=== PATIENT | female | born 1955 | race Caucasian/White ===

== ENCOUNTER → 2017-07-01 | Outpatient (CLI) | payer BC ==
[~2017-07-01] MED LIST: ISOVUE-370 76% 100ML VIAL (Q9967) As Ordered
== END ==
LOC: M RAD 16:09
DX: R31.29 Other microscopic hematuria (principal); N20.0 Calculus of kidney; K80.20 Calculus of gallbladder without cholecystitis without obstruction; N28.1 Cyst of kidney, acquired; K57.90 Diverticulosis of intestine, part unspecified, without perforation or abscess without bleeding

== ENCOUNTER → 2018-03-17 | Outpatient (CLI) | payer BC ==
--- NOTE | 2018-03-18 04:21 | REP ---
Clinical: Cholelithiasis. Technique: Malave scale ultrasound using curved array transducer. Findings: The liver demonstrates increased echogenicity suggesting fatty infiltration and 1.3 cm simple hepatic cyst in the right lobe. Pancreas is unremarkable. Gallbladder demonstrates multiple gallstones up to 3.3 cm without wall thickening or pericholecystic fluid. No biliary ductal dilatation is appreciated and the common bile duct measures 5.1 mm diameter. The right kidney is normal in reniform shape without hydronephrosis and measures 9.8 x 5.3 x 4.5 cm. No ascites. Visualized portions of the abdominal aorta normal. Impression: 1. Fatty infiltration to the liver and 1.3 cm hepatic cyst. 2. Cholelithiasis. Electronically Signed by González Tavarez MD 03/18/2018 04:12 A
== END ==
LOC: M RAD 07:47
PROVIDERS: ATTEND Family Medicine
DX: K80.70 Calculus of gallbladder and bile duct without cholecystitis without obstruction (principal)

== ENCOUNTER → 2019-11-17 | Outpatient (CLI) | payer BC, MEDICARE ==
[~2019-11-17] MED LIST changes: +ISOVUE-300 61% 50ML VIAL As Ordered ONE; -ISOVUE-370 76% 100ML VIAL (Q9967) As Ordered; +ISOVUE-370 76% 100ML VIAL As Ordered ONE; +LIDOCAINE 1% MDV 20ML VIAL As Ordered ONE; +TRIAMCINOLONE ACETONIDE SUSP 40 MG/ML VIAL (J3301) As Ordered ONE
--- NOTE | 2019-12-08 08:58 | REP ---
LEFT SHOULDER INJECTION The procedure was performed under the direct supervision of Dr. Malave. The benefits and risks including, but not limited to pain, infection, bleeding, and anaphylaxis were explained to the patient and informed consent was obtained. The left glenohumeral joint space was localized using fluoroscopic guidance. The skin was prepped and draped in a sterile fashion. 1% Lidocaine was used as a local anesthetic. Using fluoroscopic guidance, a 22-gauge spinal needle was inserted and advanced into the joint. 0.5 mL of Isovue-300 was injected to verify placement. 6 mL of a solution containing 5 mL of 1% Lidocaine and 1 mL of Kenalog 40 mg was injected. The needle was then removed. The patient tolerated the procedure well and there were no immediate complications. Less than 6 seconds of fluoroscopy time was utilized for this procedure. SAUL
== END ==
LOC: M RADPRO 13:44
PROVIDERS: ATTEND Orthopaedic Surgery Sports Medicine
DX: M19.012 Primary osteoarthritis, left shoulder (principal)
CPT/HCPCS: 20610; 77002; J3301; Q9967

== ENCOUNTER → 2020-06-03 | Outpatient (REF) | payer MEDICARE | LOC: M LAB REF 14:51 | PROVIDERS: ATTEND Physician Assistant | DX: R11.0 Nausea (principal); N39.0 Urinary tract infection, site not specified ==

== ENCOUNTER 2020-08-30 16:31 | Emergency (ER) | payer MEDICARE ==
[~2020-08-30] VITALS: Ht 167.6 cm; Wt 100.0 kg
[2020-08-30] MEDS ORDERED: ONDA4TAB6 (16:39)
[2020-08-30] MEDS ORDERED: ATEN25TA (16:39)
[2020-08-30] MEDS ORDERED: CEPH500C (16:39)
[2020-08-30] MEDS ORDERED: DOXY100T27 (16:39)
[2020-08-30] MEDS ORDERED: DULO1CAP6 (16:39)
[2020-08-30] MEDS ORDERED: ROSU10TA6 (16:39)
[2020-08-30] MEDS ORDERED: LOSA100T50 (16:39)
[2020-08-30] MEDS ORDERED: NS 1,000 ML IV ONE (18:30)
[2020-08-30] MEDS ORDERED: ONDANSETRON 4MG/2ML VIAL IV ONE (18:30)
[2020-08-30 19:21] LABS: VENOUS BASE EXCESS 1.8 (-2.0-2.0); VENOUS O2 SATURATION 52.9 % (60.0-80.0); VENOUS PARTIAL PRESSURE O2 27.2 mmHg (30.0-50.0); VENOUS PH 7.366 UNITS (7.330-7.430); VENOUS TOTAL CO2 29.5 MEQ/L (24.0-28.0)
[2020-08-30 19:25] LABS: BASO % 0.4 % (0.0-1.0); EOS % 0.1 % (0.0-3.0); HEMATOCRIT 39.3 % (36.0-47.0); HEMOGLOBIN 12.7 g/dl (12.0-15.5); LYMPH # 0.7 10^3/uL (1.5-5.0); LYMPH % 8.7 % (24.0-44.0); MEAN CORPUSCULAR HEMOGLOBIN 28.5 pg (27.0-33.0); MEAN CORPUSCULAR HGB CONC 32.3 g/dl (32.0-36.5); MEAN CORPUSCULAR VOLUME 88.3 fl (80.0-96.0); MONO # 0.5 10^3/uL (0.0-0.8); NEUTROPHILS # 6.2 10^3/uL (1.5-8.5); NEUTROPHILS % 83.3 % (36.0-66.0); PLATELET COUNT, AUTOMATED 153 10^3/uL (150-450); RED BLOOD COUNT 4.45 10^6/uL (4.00-5.40); WHITE BLOOD COUNT 7.4 10^3/uL (4.0-10.0)
[2020-08-30 19:43] LABS: ERYTHROCYTE SEDIMENTATION RATE 70 mm/hr (0-30)
[2020-08-30 19:57] LABS: ALBUMIN 2.8 GM/DL (3.2-5.2); ALT/SGPT 29 U/L (12-78); BILIRUBIN,DIRECT 0.3 MG/DL (0.0-0.2); BILIRUBIN,TOTAL 0.7 MG/DL (0.2-1.0); CK-MB VALUE MASS < 1.0 NG/ML (<3.6); CPK CREATINE PHOSPHOKINASE 34 U/L (26-192); FREE THYROXINE INDEX 2.4 % (1.3-4.8); LIPASE 66 U/L (73-393); MB/CK RELATIVE INDEX 2.94 (< OR =4); T UPTAKE 30 % (30-39); THYROXINE (T4) 7.9 UG/DL (4.5-12.0); TOTAL PROTEIN 6.5 GM/DL (6.4-8.2); TROPONIN I < 0.02 NG/ML (< 0.10)
[2020-08-30] MEDS ORDERED: ISOVUE-370 76% 100ML VIAL As Ordered ONE (20:44)
--- NOTE | 2020-08-30 21:40 | REPVR ---
PROCEDURE INFORMATION: Exam: CTA Chest With Contrast Exam date and time: 08/30/2020 9:21 PM Age: 64 years old Clinical indication: Shortness of breath and other: Elevated ddimer; Additional info: Epigastric to back pain, SOB, elev d dimer TECHNIQUE: Imaging protocol: Computed tomographic angiography of the chest with contrast. 3D rendering (Not supervised by radiologist): MIP and/or 3D reconstructed images were created by the technologist. Radiation optimization: All CT scans at this facility use at least one of these dose optimization techniques: automated exposure control; mA and/or kV adjustment per patient size (includes targeted exams where dose is matched to clinical indication); or iterative reconstruction. Contrast material: ISOVUE 370; Contrast volume: 100 ml; Contrast route: INTRAVENOUS (IV); COMPARISON: 1. IN CHEST 2 VIEW 08/30/2020 10:[address] ABD PELVIS W/O FOL BY WIT 07/01/2017 4:33 PM FINDINGS: Pulmonary arteries: There are no pulmonary emboli. Aorta: There is no aortic dissection or aneurysm. Lungs: Parenchymal scarring right middle and right lower lobes. Peripheral noncalcified pulmonary parenchymal nodules measuring up to 5 mm in the left lower lobe. Findings likely postinflammatory. Lungs otherwise clear. Pleural spaces: Unremarkable. No pneumothorax. No pleural effusion. Heart: There is mild cardiomegaly. Lymph nodes: Unremarkable. No enlarged lymph nodes. Liver: 9 mm simple cyst right lobe of the liver. Gallbladder and bile ducts: There are gallstones present. No evidence of cholecystitis demonstrated. Spleen: Borderline splenomegaly. Kidneys and ureters: Nonobstructive renal calculus on the right. Right-sided hydronephrosis not evaluated on this examination dedicated to the thorax. Also noted is patchy parenchymal opacification and enlargement of the right kidney, findings which may indicate the presence of multifocal pyelonephritis. Bones/joints: The spine demonstrates mild degenerative changes. Soft tissues: Unremarkable. IMPRESSION: 1. Peripheral noncalcified pulmonary parenchymal nodules measuring up to 5 mm in the left lower lobe. Findings likely postinflammatory. For patients at low risk (minimal or absent history of smoking and of other known risk factors), no routine follow-up is indicated. For patients at high risk (history of smoking or of other known risk factors), consider optional CT Chest at 12 months. (Reference: Adam) References: Adam Turner et al. Guidelines for Management of Incidental Pulmonary Nodules Detected on CT Images: From the Fleischner Society 2017. Radiology. 2017;284(1):228-243. 2. There is no aortic dissection or aneurysm. 3. There are no pulmonary emboli. 4. There is mild cardiomegaly. 5. Nonobstructive renal calculus on the right. Right-sided hydronephrosis not evaluated on this examination dedicated to the thorax. Also noted is patchy parenchymal opacification and enlargement of the right kidney, findings which may indicate the presence of multifocal pyelonephritis. 6. There are gallstones present. No evidence of cholecystitis demonstrated. COMMENTS: Consistent with the [employer]'s Incidental Findings Committee white paper (J Am Sharifa Radiol 2018): Any incidental renal lesion less than 1 cm or classified as too small to characterize, or any incidental cystic renal lesion characterized as simple-appearing, is likely benign. No follow-up imaging is recommended for these lesions per consensus recommendations based on imaging criteria. Electronically signed by: Dat Pineda On 08/30/2020 21:39:27 PM
--- NOTE | 2020-08-30 21:47 | REPVR ---
PROCEDURE INFORMATION: Exam: CT Abdomen And Pelvis With Contrast Exam date and time: 08/30/2020 9:21 PM Age: 64 years old Clinical indication: Abdominal pain; Epigastric; Additional info: Epigastric to back pain, SOB, elev d dimer TECHNIQUE: Imaging protocol: Computed tomography of the abdomen and pelvis with contrast. Radiation optimization: All CT scans at this facility use at least one of these dose optimization techniques: automated exposure control; mA and/or kV adjustment per patient size (includes targeted exams where dose is matched to clinical indication); or iterative reconstruction. Contrast material: ISOVUE 370; Contrast volume: 100 ml; Contrast route: INTRAVENOUS (IV); COMPARISON: 1. CT ABD PELVIS W/O FOL BY WIT 07/01/2017 4:33 PM 2. WA ABDOMEN MIN 2 VIEW 08/30/2020 10:24 AM FINDINGS: Liver: There are multiple hepatic cysts measuring up to 1.1 cm in the right lobe of the liver. There is a 9 mm hypodensity in the lateral aspect of the hepatic dome not fully evaluated on this single phase examination. Lesion does not represent a simple cyst. Further evaluation as clinically directed suggested. Gallbladder and bile ducts: There are gallstones present. There is mild thickening of the gallbladder wall which may be secondary to chronic cholecystitis. No pericholecystic fluid. Clinical correlation to exclude acute cholecystitis suggested. Pancreas: Normal. No ductal dilation. Spleen: Normal. No splenomegaly. Adrenal glands: Normal. No mass. Kidneys and ureters: Simple left renal cyst measures 1.5 cm. Bilateral nonobstructive intrarenal calculi. There are two obstructive ureteral calculi located proximal right ureter measuring up to 7 mm mild resulting in moderate proximal hydroureteronephrosis. There is moderate periureteral and perinephric stranding. No urinoma demonstrated. There is patchy opacification of the right kidney particularly in the upper, lateral interpolar and lower pole, findings compatible with pyelonephritis. Stomach and bowel: Unremarkable. No obstruction. No mucosal thickening. Appendix: No evidence of appendicitis. Intraperitoneal space: Unremarkable. No free air. No significant fluid collection. Vasculature: Unremarkable. No abdominal aortic aneurysm. Lymph nodes: Unremarkable. No enlarged lymph nodes. Urinary bladder: Unremarkable as visualized. Reproductive: There has been a hysterectomy. Bones/joints: Moderate central spinal stenosis L3-L4 and L4-L5. Bulging annulus L5-S1. Soft tissues: Unremarkable. IMPRESSION: 1. There has been a hysterectomy. 2. There are multiple hepatic cysts. There is a 9 mm hypodensity in the lateral aspect of the hepatic dome not fully evaluated on this single phase examination. Lesion does not represent a simple cyst. Further evaluation as clinically directed suggested. 3. There are gallstones present. There is mild thickening of the gallbladder wall which may be secondary to chronic cholecystitis. No pericholecystic fluid. Clinical correlation to exclude acute cholecystitis suggested. 4. Bilateral nonobstructive intrarenal calculi. 5. There are 2 obstructive proximal right ureteral calculi as described above. 6. There is patchy opacification of the right kidney compatible with pyelonephritis. COMMENTS: Consistent with the [employer]'s Incidental Findings Committee white paper (J Am Sharifa Radiol 2018): Any incidental renal lesion less than 1 cm or classified as too small to characterize, or any incidental cystic renal lesion characterized as simple-appearing, is likely benign. No follow-up imaging is recommended for these lesions per consensus recommendations based on imaging criteria. Electronically signed by: Dat Pineda On 08/30/2020 21:46:56 PM
[2020-08-30] MEDS ORDERED: TAMSULOSIN 0.4 MG CAP PO ONE (23:00)
[2020-08-30] MEDS ORDERED: CEPHALEXIN 500 MG CAP PO ONE (23:00)
[2020-08-30] MEDS ORDERED: FLOM0.4C39 PO (23:02)
[2020-08-30] MEDS ORDERED: CEPH500C PO (23:02)
[2020-08-30 23:09] VITALS: BP 150/94
[2020-08-30] MEDS ORDERED: ACETAMINOPHEN 500 MG TAB PO ONE (23:20)
--- NOTE | 2020-09-01 05:59 | ECGEPIP ---
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
--- NOTE | 2020-09-02 13:58 | ED PDOC ---
Post-Departure Follow-Up radiology report faxed to Gabby Maldonado MD Sep 02, 2020 13:58
== END 2020-08-30 23:30 | disposition home or self-care (01) ==
LOC: M ED 16:31
DX: N10 Acute pyelonephritis (principal); N13.2 Hydronephrosis with renal and ureteral calculous obstruction; R11.0 Nausea; R00.0 Tachycardia, unspecified; I10 Essential (primary) hypertension; E78.5 Hyperlipidemia, unspecified; K80.20 Calculus of gallbladder without cholecystitis without obstruction; R91.8 Other nonspecific abnormal finding of lung field; R50.9 Fever, unspecified; R30.0 Dysuria; R10.84 Generalized abdominal pain; K76.89 Other specified diseases of liver; Z88.0 Allergy status to penicillin
CPT/HCPCS: 36415; 71046; 71275; 74019; 74177; 80047; 80053; 80076; 81001; 82550; 82553; 82803; 83605; 83690; 84436; 84443; 84479; 84484; 85025; 85379; 85652; 86140; 87086; 93005; 96361; 96374; 99284; J2405; Q9967

== ENCOUNTER → 2020-08-30 | Outpatient (CLI) | payer MEDICARE ==
[~2020-08-30] MED LIST changes: +ATEN25TA; +CEPH500C; +CEPH500C PO; +DOXY100T27; +DULO1CAP6; +FLOM0.4C39 PO; -ISOVUE-300 61% 50ML VIAL As Ordered ONE; -ISOVUE-370 76% 100ML VIAL As Ordered ONE; -LIDOCAINE 1% MDV 20ML VIAL As Ordered ONE; +LOSA100T50; +ONDA4TAB6; +ROSU10TA6; -TRIAMCINOLONE ACETONIDE SUSP 40 MG/ML VIAL (J3301) As Ordered ONE
--- NOTE | 2020-08-30 10:53 | REP ---
INDICATION: SHORTNESS OF BREATH, FEVER. COMPARISON: None. FINDINGS: The superior mediastinal structures are midline. The cardiac silhouette is unremarkable in size, shape, and position. The diaphragmatic surfaces of the lungs are regular, and the costophrenic angles are clear. There is a subtle asymmetric density seen in the right lower lobe within or abutting the right minor fissure. The lung laureano are otherwise clear.. The imaged osseous structures are intact. IMPRESSION: Likely a small patch of subsegmental atelectatic change or fibrotic change seen in the right lung as described above, however, since are no priors comparison a 1 month follow-up is recommended or sooner if clinically relevant. Certainly, small patch of developing pneumonia could not be ruled out at this time. <Electronically signed by Alfredo Bethea > 08/30/20 [id number]
--- NOTE | 2020-08-30 10:54 | REP ---
INDICATION: FEVER, DYSURIA, GENERALIZED ABDOMINAL PAIN. COMPARISON: None. TECHNIQUE: Supine and upright views of the abdomen FINDINGS: Two loops of gas-filled mildly dilated small bowel loops are seen in the left upper quadrant. Gas and stool seen throughout the colon and within the rectosigmoid region. There is a moderate amount of colonic content. There is no evidence of free air. The osseous structures are within normal limits. The organ silhouettes insofar as delineated are unremarkable. IMPRESSION: Probable small bowel ileus. Follow-up is suggested. <Electronically signed by Alfredo Bethea > 08/30/20 [id number]
[2020-08-30 11:39] LABS: BASO % 0.4 % (0.0-1.0); EOS % 0.3 % (0.0-3.0); HEMOGLOBIN 13.6 g/dl (12.0-15.5); LYMPH # 0.6 10^3/uL (1.5-5.0); LYMPH % 6.3 % (24.0-44.0); MEAN CORPUSCULAR HEMOGLOBIN 28.6 pg (27.0-33.0); MEAN CORPUSCULAR HGB CONC 32.4 g/dl (32.0-36.5); MEAN CORPUSCULAR VOLUME 88.4 fl (80.0-96.0); MONO # 0.5 10^3/uL (0.0-0.8); MONO % 5.2 % (2.0-8.0); NEUTROPHILS # 8.8 10^3/uL (1.5-8.5); NEUTROPHILS % 86.7 % (36.0-66.0); PLATELET COUNT, AUTOMATED 162 10^3/uL (150-450); RED BLOOD COUNT 4.75 10^6/uL (4.00-5.40); WHITE BLOOD COUNT 10.1 10^3/uL (4.0-10.0)
[2020-08-30 12:08] LABS: ALBUMIN 3.1 GM/DL (3.2-5.2); BILIRUBIN,TOTAL 0.9 MG/DL (0.2-1.0); CALCIUM LEVEL 8.9 MG/DL (8.8-10.2); CREATININE FOR GFR 1.12 MG/DL (0.55-1.30); POTASSIUM SERUM 3.5 MEQ/L (3.5-5.1); TOTAL PROTEIN 6.9 GM/DL (6.4-8.2)
== END ==
LOC: M WUC 10:10
PROVIDERS: ATTEND Nurse Practitioner Family
DX: R50.9 Fever, unspecified (principal); R30.0 Dysuria; R10.84 Generalized abdominal pain; R91.8 Other nonspecific abnormal finding of lung field

== ENCOUNTER → 2020-09-23 | Outpatient (CLI) | payer MEDICARE ==
[~2020-09-23] MED LIST changes: -ATEN25TA; +ATEN25TA PO; -DULO1CAP6; +DULO1CAP6 PO; -LOSA100T50; +LOSA100T50 PO; -ROSU10TA6; +ROSU10TA6 PO
[2020-09-23 17:47] LABS: HEMATOCRIT 38.3 % (36.0-47.0); HEMOGLOBIN 11.9 g/dl (12.0-15.5); MEAN CORPUSCULAR HGB CONC 31.1 g/dl (32.0-36.5); MEAN CORPUSCULAR VOLUME 90.1 fl (80.0-96.0); PLATELET COUNT, AUTOMATED 194 10^3/uL (150-450); RED BLOOD COUNT 4.25 10^6/uL (4.00-5.40); WHITE BLOOD COUNT 4.7 10^3/uL (4.0-10.0)
[2020-09-23 18:15] LABS: ALBUMIN 3.1 GM/DL (3.2-5.2); BILIRUBIN,TOTAL 0.4 MG/DL (0.2-1.0); CALCIUM LEVEL 9.2 MG/DL (8.8-10.2); CREATININE FOR GFR 1.1 MG/DL (0.55-1.30); GLOMERULAR FILTRATION RATE 53.1 (>45); TOTAL PROTEIN 6.9 GM/DL (6.4-8.2)
== END ==
LOC: M WUC 12:02
PROVIDERS: ATTEND Urology
DX: N20.1 Calculus of ureter (principal)

== ENCOUNTER → 2020-09-28 | Outpatient (CLI) | payer MEDICARE | LOC: M LABSMTC 12:41 | PROVIDERS: ATTEND Anesthesiology | DX: Z01.812 Encounter for preprocedural laboratory examination (principal); Z20.822 Contact with and (suspected) exposure to COVID-19 ==

== ENCOUNTER 2020-10-03 11:07 | Day surgery (SDC) | payer MEDICARE ==
[~2020-10-03] VITALS: Ht 165.1 cm; Wt 97.0 kg
[~2020-10-03 11:07] MED LIST changes: +CIPROFLOXACIN 400 MG in IV 1 EA IV ONE; +LIDOCAINE 1% MDV 20ML VIAL SQ PRN; +LIDOCAINE 2% 100MG/5ML SDV (FOR ANES.) As Ordered ONE; +LR 1,000 ML IV ONE; +MIDAZOLAM INJ 2MG/2ML VIAL (J2250 PER 1MG) As Ordered ONE; +fentaNYL 100 MCG/2 ML INJECTION (J3010) As Ordered ONE; +propofoL 200 MG/20 ML VIAL As Ordered ONE
[2020-10-03] MEDS ORDERED: CONRAY-60 60% 50ML VIAL (Q9961) As Ordered ONE (12:12)
[2020-10-03] MEDS ORDERED: ePHEDrine SULFATE 25 MG/5 ML(5MG/ML) SYRINGE As Ordered ONE (12:41)
[2020-10-03] MEDS ORDERED: dexameTHASONE 4 MG/ML 1ML VIAL (J1100 PER 1MG) As Ordered ONE (12:42)
[2020-10-03] MEDS ORDERED: ONDANSETRON 4MG/2ML VIAL As Ordered ONE (12:42)
[2020-10-03] MEDS ORDERED: PHENYLephrine 500MCG 5ML (100MCG/ML) SYRINGE As Ordered ONE ×2 (12:45→13:03)
[2020-10-03] MEDS ORDERED: ACETAMINOPHEN 1000MG 100ML IV BTL (OFIRMEV) (J0131 PER 10MG) As Ordered ONE (12:50)
[2020-10-03] MEDS ORDERED: CIPR500T39 PO (13:25)
[2020-10-03] MEDS ORDERED: OXYB5TAB10 PO (13:25)
[2020-10-03] MEDS ORDERED: AZO-95TA3 PO (13:25)
--- NOTE | 2020-10-03 13:32 | REP ---
INDICATION: RIGHT LASER LITHOTRIPSY. COMPARISON: CT 08/30/2020 TECHNIQUE: Two images from the C-arm fluoroscopy provided to the Urology service for placement of a right internal ureteral stent. FINDINGS: Initial image shows contrast in the lower half of the ureter to about the L4-5 level on the right side. Second image shows some contrast in the collecting system and a double pigtail right ureteral stent coiled proximally in the renal pelvis and distally in the bladder. A pelvic phlebolith to the right of midline is noted adjacent to the bladder but seen well on CT outside of the bladder confines. IMPRESSION: 1. Status post placement of a double pigtail right internal ureteral stent. 2. Fluoroscopy time: 14 seconds. <Electronically signed by Marty Naik > 10/03/20 [id number]
--- NOTE | 2020-10-03 13:46 | ROOPDOC ---
[facility] Report Of Operation Report of Operation DATE OF PROCEDURE: 10/03/20 PREPROCEDURE DIAGNOSES: [right ureteral stones]. POSTPROCEDURE DIAGNOSES: [same]. PROCEDURE PERFORMED: [cysto, fluoro, retrograde, rig uscope, laser litho, basket extraction, stent placement (right side)]. SURGEON: [Corrie Sarmiento, WHEEL AND AXLE INSPECTOR: [none], ANESTHESIA: [general]. ESTIMATED BLOOD LOSS: Approximately [1] mL. COMPLICATIONS: [none]. REMARKS: [64yo wf. Right flank pain. Found to have right ureteral stones in distal ureter. Surgery arranged. Didn't pass the stones on her own. Still with pressure and back pain. No guarantees given. Risks discussed including infection, pain, bleeding, scarring, failure of surgery, need for more surgery, injury to gu tract, risks of anesthesia and others]. FINDINGS: SPECIMENS REMOVED: [stone] PROCEDURE NOTE: . DESCRIPTION OF PROCEDURE: [Met with pt in preop area. Still having symptoms. Surgery again discussed. Pt wished to proceed. Pt brought to OR. Surgery done under coverage of iv Cipro. Dorsal litho position. Well padded. General anesthesia secured. Time out performed. Prep'd and draped in sterile fashion. Rigid cystoscopy performed. No stone in bladder. Chronic cystitis. Right uo found. Retrograde performed with 5fr ureteral catheter. Contrast injected gently under fluoro. Fluoro used intermittently. Filling defect in distal ureter noted. Wire passed up into kidney. Needed help from ureteral catheter. Wire wouldn't pass initially. With wire in place, rigid ureteroscopy performed. Stones encountered. I tried to basket and remove one but it was too large. I couldn't dislodge it. I had to cut the basket and go up along side it. Laser lithotripsy performed. Stones fragmented well. With new basket, all fragments were removed. I passed the rigid ureteroscope to the renal pelvis. Once satisfied all fragments had been removed, 6fr multilength stent placed. Bladder emptied and cystoscope removed. Pt tolerated all well and left room in satisfactory condition. Home on Cipro, Pyridium, oxybutynin. Talked with daughter Angela. KOSTA SARMIENTO MD Oct 03, 2020 13:45
[2020-10-03] MEDS ORDERED: fentaNYL 100 MCG/2 ML INJECTION (J3010) IV PRN (13:50)
[2020-10-03] MEDS ORDERED: LR 1,000 ML IV SCH ×2 (13:50→13:55)
[2020-10-03] MEDS ORDERED: ONDANSETRON 4MG/2ML VIAL IV PRN (13:50)
[2020-10-03] MEDS ORDERED: oxyCODONE 5MG TAB PO PRN (13:50)
[2020-10-03 14:52] VITALS: BP 143/85
== END 2020-10-03 14:52 | disposition home or self-care (01) ==
LOC: M OPP 11:07 → M SDC 14:52
PROVIDERS: ATTEND Urology
DX: N20.1 Calculus of ureter (principal); Z88.0 Allergy status to penicillin; I10 Essential (primary) hypertension; E78.5 Hyperlipidemia, unspecified; M79.7 Fibromyalgia; Z79.899 Other long term (current) drug therapy
CPT/HCPCS: 52356; 74420; 82365; 88300; C1769; C2617; J0131; J0744; J1100; J2250; J2370; J2405; J3010; Q9961

== ENCOUNTER → 2020-10-17 | Outpatient (CLI) | payer MEDICARE ==
[~2020-10-17] MED LIST changes: +AZO-95TA3 PO; +CIPR500T39 PO; -CIPROFLOXACIN 400 MG in IV 1 EA IV ONE; -LIDOCAINE 1% MDV 20ML VIAL SQ PRN; -LIDOCAINE 2% 100MG/5ML SDV (FOR ANES.) As Ordered ONE; +LOSA100T45 PO; -LOSA100T50 PO; -LR 1,000 ML IV ONE; -MIDAZOLAM INJ 2MG/2ML VIAL (J2250 PER 1MG) As Ordered ONE; +OXYB5TAB10 PO; -fentaNYL 100 MCG/2 ML INJECTION (J3010) As Ordered ONE; -propofoL 200 MG/20 ML VIAL As Ordered ONE
[2020-10-17 13:02] LABS: BLOOD UREA NITROGEN 14 MG/DL (7-18); CREATININE FOR GFR 0.98 MG/DL (0.55-1.30); GLOMERULAR FILTRATION RATE > 60.0 (>45)
== END ==
LOC: M WUC 11:31
PROVIDERS: ATTEND Surgery
DX: D13.4 Benign neoplasm of liver (principal)

== ENCOUNTER → 2020-10-21 | Outpatient (CLI) | payer MEDICARE ==
[~2020-10-21] MED LIST changes: +ISOVUE-370 76% 100ML VIAL As Ordered ONE; -LOSA100T45 PO; +LOSA100T50 PO
--- NOTE | 2020-10-21 11:36 | REP ---
INDICATION: BENIGN,NEOPLASM OF LIVER. COMPARISON: 08/30/2020 TECHNIQUE: Triple phase liver scan obtained. FINDINGS: The 9 mm area in the lateral aspect of the dome of the liver in the right lobe represents a small hemangioma. There is a focal area of pleural thickening in the right lower lung which causes extrinsic compression on an adjacent area of the right lobe of the liver. Multiple small cysts are noted in the liver. There are no gallstones. The gallbladder wall remains slightly thickened. The pancreas, spleen, adrenal glands are unremarkable. Bilateral renal calculi and cysts are noted. IMPRESSION: Multiple cysts in the liver. The 9 mm low attenuation area noted on the scan done 08/30/2020 represents a small hemangioma. <Electronically signed by Taran Lee > 10/21/20 [id number]
== END ==
LOC: M RAD 10:52
PROVIDERS: ATTEND Surgery
DX: Q44.6 Cystic disease of liver (principal); D18.03 Hemangioma of intra-abdominal structures
CPT/HCPCS: 74170; Q9967

== ENCOUNTER → 2020-11-28 | Outpatient (CLI) | payer MEDICARE ==
[~2020-11-28] MED LIST changes: -ISOVUE-370 76% 100ML VIAL As Ordered ONE
--- NOTE | 2020-11-30 17:04 | SLEEPHOME ---
DATE: 11/28/2020 ORDERED BY: Dr. Leon Dumont Diagnostic home sleep testing was performed due to concern for the obstructive sleep apnea syndrome in this patient with a history of fatigue, pulmonary hypertension, and edema. For testing, a nocturnal T3 respiratory monitoring device was used. Continuous record was made of pulse, oxygen saturation, air flow, chest and abdominal strain, and body position. There was 11 hours and 59 minutes of data reviewed. There was 7 hours and 4 minutes marked as time in bed. During the interval marked time in bed, there were 205 respiratory events identified of 10 seconds in duration or greater for a respiratory event index of 29. The events were primarily obstructive, but 27 mixed and central apneas were also seen. Baseline pulse rate 72. Pulse ranged 60-96. Baseline saturation 89%. Saturations fell to 67%. Testing was performed in both the supine and nonsupine positions. IMPRESSION: Abnormal home sleep testing with repetitive respiratory events and oxygen desaturations to 67% with a respiratory event index of 29 is consistent with the obstructive sleep apnea syndrome. RECOMMENDATION: The patient should be encouraged to undergo formal sleep evaluation.
== END ==
LOC: M SLEEP HO 11:46
PROVIDERS: ATTEND Internal Medicine Cardiovascular Disease
DX: I27.20 Pulmonary hypertension, unspecified (principal); R60.0 Localized edema; R53.82 Chronic fatigue, unspecified; G47.33 Obstructive sleep apnea (adult) (pediatric)

== ENCOUNTER → 2020-11-29 | Outpatient (REF) | payer MEDICARE ==
[2020-11-29 16:44] LABS: ALBUMIN 3.5 GM/DL (3.2-5.2); ALT/SGPT 18 U/L (12-78); BILIRUBIN,DIRECT 0.1 MG/DL (0.0-0.2); BILIRUBIN,TOTAL 0.4 MG/DL (0.2-1.0); BLOOD UREA NITROGEN 22 MG/DL (7-18); CALCIUM LEVEL 9.2 MG/DL (8.8-10.2); CARBON DIOXIDE LEVEL 33 MEQ/L (21-32); CHLORIDE LEVEL 108 MEQ/L (98-107); CPK CREATINE PHOSPHOKINASE 86 U/L (26-192); CREATININE FOR GFR 0.82 MG/DL (0.55-1.30); GLOMERULAR FILTRATION RATE > 60.0 (>45); GLUCOSE, FASTING 68 MG/DL (70-100); IRON (FE) 82 UG/DL (50-170); MAGNESIUM LEVEL 2.2 MG/DL (1.8-2.4); PHOSPHORUS LEVEL 3.4 MG/DL (2.5-4.9); POTASSIUM SERUM 3.9 MEQ/L (3.5-5.1); RHEUMATOID FACTOR QUANT < 10.0 IU/ML (<15.0); SODIUM LEVEL 144 MEQ/L (136-145)
[2020-11-29 16:53] LABS: TOTAL 25(OH) VITAMIN D 32.7 NG/ML (30.0-100.0); VITAMIN B12 LEVEL 696 PG/ML (247-911)
[2020-12-04 21:09] LABS: ANA (HEP2) Positive (.); CYCLIC CITRULLINATED PEPTIDE 7 units (0-19)
== END ==
LOC: M SFHCRHEU 15:22
PROVIDERS: ATTEND Internal Medicine
DX: M79.10 Myalgia, unspecified site (principal); Z79.1 Long term (current) use of non-steroidal anti-inflammatories (NSAID); M25.40 Effusion, unspecified joint; M25.50 Pain in unspecified joint; Z79.899 Other long term (current) drug therapy
CPT/HCPCS: 80048; 80076; 82306; 82550; 82607; 83540; 83735; 84100; 85652; 86038; 86140; 86200; 86235; 86431; G0463

== ENCOUNTER → 2020-11-30 | Outpatient (CLI) | payer MEDICARE ==
--- NOTE | 2020-11-30 16:19 | REP ---
INDICATION: POLYARTHRALGIA. COMPARISON: None. TECHNIQUE: Three views of both shoulders were obtained. FINDINGS: Three views of the right shoulder show moderate arthritis of the glenohumeral and acromioclavicular joints. There is a calcification in the axillary recess which could be a synovial osteochondroma. There is no evidence of fracture or dislocation. The periarticular soft tissues, including the visualized right lung, are unremarkable. Three views of the left shoulder show mild arthritis of the acromioclavicular joint and severe arthritis of the glenohumeral joint, with large spurs from both the glenoid and humeral components of the joint. There is no evidence of fracture or dislocation. The periarticular soft tissues, including the visualized left lung, are unremarkable. IMPRESSION: 1. Moderate arthritis of the glenohumeral and acromioclavicular joints on the right. 2. Severe arthritis of the left glenohumeral joint and mild arthritis of the left acromioclavicular joint. 3. 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 <Electronically signed by Lennox Castellanos > 11/30/20 [id number]
--- NOTE | 2020-11-30 16:22 | REP ---
INDICATION: POLYARTHRALGIA. COMPARISON: None. TECHNIQUE: Four views of both hands were obtained. FINDINGS: Four views of the left hand, demonstrate multifocal arthropathy, most significant at the 1st and 3rd metacarpophalangeal joints, the interphalangeal joint of the thumb and the D IP joint of the 3rd finger. There is no evidence of fracture or dislocation. Four views of the right hand, demonstrate multifocal arthropathy, most significant at the 1st and 5th metacarpophalangeal joints, the interphalangeal joint of the thumb and the D IP joint of the 3rd finger. There is no evidence of fracture or dislocation. IMPRESSION: Multifocal arthropathy of both hands, as described. <Electronically signed by Lennox Castellanos > 11/30/20 [id number]
--- NOTE | 2020-11-30 16:28 | REP ---
INDICATION: POLYARTHRALGIA. COMPARISON: None. TECHNIQUE: 9 views. Bilateral foot study. FINDINGS: There is mild osteoarthritic narrowing and spurring of the 1st MTP joint on the right. There is Achilles and plantar calcaneal spurring on the right. Bones, joints, and soft tissues are otherwise unremarkable on the right. A small accessory ossicle is visible at the ankle anteriorly. Left foot views demonstrate soft tissue swelling about the 5th MTP joint. There is left-sided plantar and Achilles calcaneal spurring. Minimal 1st MTP joint spurring is noted on the left. There is an os naviculare. No erosive changes seen. IMPRESSION: No acute bony abnormality. Mild 1st MTP joint spurring bilaterally. Bilateral heel spurs. <Electronically signed by Ok Escobar > 11/30/20 [id number]
--- NOTE | 2020-11-30 16:31 | REP ---
INDICATION: POLYARTHRALGIA. COMPARISON: None. TECHNIQUE: Eight views total, 4 on each side. Bilateral wrist radiographs. FINDINGS: Overall mineralization pattern is normal. There is mild osteoarthritis spurring of the 1st carpometacarpal articulations bilaterally. Mild spurring is seen in the navicular 0 multangular joints bilaterally. No erosive changes are noted at the carpus on either side. Study is otherwise unremarkable IMPRESSION: Mild bilateral osteoarthritic changes as above. <Electronically signed by Ok Escobar > 11/30/20 [id number]
== END ==
LOC: M WUC 15:28
PROVIDERS: ATTEND Internal Medicine
DX: M19.041 Primary osteoarthritis, right hand (principal); M19.042 Primary osteoarthritis, left hand; M19.011 Primary osteoarthritis, right shoulder; M19.012 Primary osteoarthritis, left shoulder; M19.031 Primary osteoarthritis, right wrist; M19.032 Primary osteoarthritis, left wrist; M77.31 Calcaneal spur, right foot; M77.32 Calcaneal spur, left foot

== ENCOUNTER → 2020-12-23 | Outpatient (REF) | payer MEDICARE ==
[2020-12-23 13:27] LABS: COMPLEMENT C3 135 MG/DL (90-180); COMPLEMENT C4 36 MG/DL (10-40)
[2020-12-23 16:31] LABS: BASO # 0.1 10^3/uL (0.0-0.2); BASO % 1.2 % (0.0-1.0); EOS # 0.2 10^3/uL (0.0-0.5); EOS % 2.8 % (0.0-3.0); HEMATOCRIT 41.6 % (36.0-47.0); HEMOGLOBIN 13.1 g/dl (12.0-15.5); LYMPH # 1.9 10^3/uL (1.5-5.0); LYMPH % 33.9 % (24.0-44.0); MEAN CORPUSCULAR HEMOGLOBIN 27.7 pg (27.0-33.0); MEAN CORPUSCULAR HGB CONC 31.5 g/dl (32.0-36.5); MEAN CORPUSCULAR VOLUME 87.9 fl (80.0-96.0); MONO # 0.4 10^3/uL (0.0-0.8); MONO % 6.3 % (2.0-8.0); NEUTROPHILS # 3.2 10^3/uL (1.5-8.5); NEUTROPHILS % 55.6 % (36.0-66.0); PLATELET COUNT, AUTOMATED 211 10^3/uL (150-450); RED BLOOD COUNT 4.73 10^6/uL (4.00-5.40); WHITE BLOOD COUNT 5.7 10^3/uL (4.0-10.0)
[2020-12-23 18:47] LABS: APPEARANCE, URINE CLOUDY (CLEAR); BACTERIA, URINE AUTO NEGATIVE (NEGATIVE); BILIRUBIN, URINE AUTO NEGATIVE (NEGATIVE); BLOOD, URINE BLOOD NEGATIVE (NEGATIVE); CALCIUM OXALATE CRYSTALS MODERATE; COLOR, URINE YELLOW (YELLOW); GLUCOSE, URINE (UA) AUTO NEGATIVE (NEGATIVE); KETONE, URINE AUTO NEGATIVE (NEGATIVE); LEUKOCYTE ESTERASE, URINE AUTO NEGATIVE (NEGATIVE); MUCUS, URINE SMALL (NEGATIVE); NITRITE, URINE AUTO NEGATIVE (NEGATIVE); PROTEIN, URINE AUTO 1+ mg/dL (NEGATIVE); RBC, URINE AUTO 3 /HPF (0-3); SPECIFIC GRAVITY URINE AUTO 1.023 (1.002-1.035); SQUAMOUS EPITHELIAL CELL UR AU 13 /HPF (0-6); WBC, URINE AUTO 3 /HPF (0-3)
== END ==
LOC: M SFHCRHEU 10:41
PROVIDERS: ATTEND Internal Medicine
DX: R76.8 Other specified abnormal immunological findings in serum (principal)

== ENCOUNTER → 2021-01-12 | Outpatient (REF) | payer MEDICARE ==
[2021-01-12 15:54] LABS: APPEARANCE, URINE CLEAR (CLEAR); BACTERIA, URINE AUTO 1+ (NEGATIVE); BILIRUBIN, URINE AUTO NEGATIVE (NEGATIVE); BLOOD, URINE BLOOD 2+ (NEGATIVE); COLOR, URINE AMBER (YELLOW); GLUCOSE, URINE (UA) AUTO NEGATIVE (NEGATIVE); KETONE, URINE AUTO NEGATIVE (NEGATIVE); LEUKOCYTE ESTERASE, URINE AUTO 1+ (NEGATIVE); MUCUS, URINE SMALL (NEGATIVE); NITRITE, URINE AUTO POSITIVE (NEGATIVE); PROTEIN, URINE AUTO 2+ mg/dL (NEGATIVE); RBC, URINE AUTO 44 /HPF (0-3); SPECIFIC GRAVITY URINE AUTO 1.011 (1.002-1.035); SQUAMOUS EPITHELIAL CELL UR AU 2 /HPF (0-6); WBC, URINE AUTO 116 /HPF (0-3)
== END ==
LOC: M SFHCCLAY 10:26
PROVIDERS: ATTEND Urology
DX: R30.0 Dysuria (principal)

== ENCOUNTER → 2021-07-26 | Outpatient (CLI) | payer MEDICARE ==
[~2021-07-26] MED LIST changes: +LOSA100T45 PO; -LOSA100T50 PO
== END ==
LOC: M LABSMTC 11:35
PROVIDERS: ATTEND Anesthesiology
DX: Z01.812 Encounter for preprocedural laboratory examination (principal); Z20.822 Contact with and (suspected) exposure to COVID-19

== ENCOUNTER 2021-07-31 10:55 | Day surgery (SDC) | payer MEDICARE ==
[~2021-07-31] VITALS: Ht 162.6 cm; Wt 96.5 kg
[~2021-07-31 10:55] MED LIST changes: +LIDOCAINE 1% SDV 5ML VIAL As Ordered ONE; +PROPARACAINE 0.5% OPHTH SOL 15ML OD ONE
[2021-07-31] MEDS ORDERED: INSULIN LISPRO (NovoLOG) PER UNIT SC PRN (11:15)
[2021-07-31] MEDS: PHENYLEPHRINE 2.5% OPHTH SOL 2ML OD SCH ×2 (11:34→11:45)
[2021-07-31] MEDS: TROPICAMIDE 1% OPHTH SOLN 2ML OD SCH ×2 (11:34→11:45)
[2021-07-31] MEDS: OFLOXACIN 0.3 % (OCUFLOX) OPTH SOL 5ML OD SCH ×2 (11:34→11:45)
[2021-07-31] MEDS ORDERED: fentaNYL 100 MCG/2 ML INJECTION As Ordered ONE (11:53)
[2021-07-31] MEDS ORDERED: MIDAZOLAM INJ 2MG/2ML VIAL (J2250 PER 1MG) As Ordered ONE (11:53)
[2021-07-31] MEDS ORDERED: hydrALAZINE 20MG/ML 1ML VIAL (J0360 PER 20MG) As Ordered ONE (12:41)
[2021-07-31 13:30] VITALS: BP 165/74
== END 2021-07-31 13:35 | disposition home or self-care (01) ==
LOC: M SDC 10:55
PROVIDERS: ATTEND Ophthalmology
DX: H25.11 Age-related nuclear cataract, right eye (principal); I10 Essential (primary) hypertension; E78.5 Hyperlipidemia, unspecified; M79.7 Fibromyalgia; Z79.899 Other long term (current) drug therapy; Z88.0 Allergy status to penicillin
CPT/HCPCS: 66984; J0360; J2250; J3010; V2632

== ENCOUNTER → 2021-09-27 | Outpatient (CLI) | payer MEDICARE ==
[~2021-09-27] MED LIST changes: -LIDOCAINE 1% SDV 5ML VIAL As Ordered ONE; -PROPARACAINE 0.5% OPHTH SOL 15ML OD ONE
== END ==
LOC: M LABSMTC 11:45
PROVIDERS: ATTEND Anesthesiology
DX: Z01.812 Encounter for preprocedural laboratory examination (principal); Z20.822 Contact with and (suspected) exposure to COVID-19

== ENCOUNTER → 2021-10-06 | Outpatient (CLI) | payer MEDICARE | LOC: M RAD 12:06 | PROVIDERS: ATTEND Urology | DX: N20.0 Calculus of kidney (principal); K80.20 Calculus of gallbladder without cholecystitis without obstruction ==

== ENCOUNTER → 2021-10-10 | Outpatient (REF) | payer MEDICARE ==
[2021-10-10 17:16] LABS: APPEARANCE, URINE TURBID (CLEAR); BACTERIA, URINE AUTO NEGATIVE (NEGATIVE); BILIRUBIN, URINE AUTO NEGATIVE (NEGATIVE); BLOOD, URINE BLOOD NEGATIVE (NEGATIVE); COLOR, URINE AMBER (YELLOW); GLUCOSE, URINE (UA) AUTO NEGATIVE (NEGATIVE); KETONE, URINE AUTO TRACE mg/dL (NEGATIVE); LEUKOCYTE ESTERASE, URINE AUTO NEGATIVE (NEGATIVE); MUCUS, URINE SMALL (NEGATIVE); NITRITE, URINE AUTO NEGATIVE (NEGATIVE); PROTEIN, URINE AUTO NEGATIVE (NEGATIVE); RBC, URINE AUTO 0 /HPF (0-3); SPECIFIC GRAVITY URINE AUTO 1.027 (1.002-1.035); SQUAMOUS EPITHELIAL CELL UR AU 9 /HPF (0-6); UROBILINOGEN, URINE AUTO 0.2 mg/dL (0.0-2.0); WBC, URINE AUTO 0 /HPF (0-3)
== END ==
LOC: M SMT 16:40
PROVIDERS: ATTEND Urology
DX: R10.9 Unspecified abdominal pain (principal)

== ENCOUNTER → 2021-10-18 | Outpatient (CLI) | payer MEDICARE | LOC: M PLAIMG 09:31 | PROVIDERS: ATTEND Urology | DX: N20.0 Calculus of kidney (principal); R93.5 Abnormal findings on diagnostic imaging of other abdominal regions, including retroperitoneum ==

== ENCOUNTER → 2021-10-25 | Outpatient (CLI) | payer MEDICARE | LOC: M LABSMTC 09:32 | PROVIDERS: ATTEND Anesthesiology | DX: Z11.52 Encounter for screening for COVID-19 (principal) ==

== ENCOUNTER 2021-10-30 08:35 | Day surgery (SDC) | payer MEDICARE ==
[~2021-10-30] VITALS: Ht 165.1 cm; Wt 96.5 kg
[~2021-10-30 08:35] MED LIST changes: +LIDOCAINE 1% SDV 5ML VIAL As Ordered ONE; +LR 1,000 ML IV SCH; +MIDAZOLAM INJ 2MG/2ML VIAL (J2250 PER 1MG) As Ordered ONE; +TETRACAINE 0.5% OPHTH SOLN 4ML OS SCH; +fentaNYL 100 MCG/2 ML INJECTION As Ordered ONE
[2021-10-30] MEDS: CYCLOPENTOLATE 1% OPHTH SOLN 2 ML BTL OS SCH ×2 (09:02→09:05)
[2021-10-30] MEDS: FLURBIPROFEN 0.03% OPHTH SOLN 2.5 ML OS SCH ×2 (09:03→09:05)
[2021-10-30] MEDS: PHENYLEPHRINE 2.5% OPHTH SOL 2ML OS SCH ×2 (09:03→09:05)
[2021-10-30 10:30] VITALS: BP 144/65
== END 2021-10-30 11:08 | disposition home or self-care (01) ==
LOC: M SDC 08:35
PROVIDERS: ATTEND Ophthalmology
DX: H25.12 Age-related nuclear cataract, left eye (principal); I10 Essential (primary) hypertension; E78.5 Hyperlipidemia, unspecified; M79.7 Fibromyalgia; Z79.899 Other long term (current) drug therapy; Z88.0 Allergy status to penicillin
CPT/HCPCS: 66984; J2250; J3010; V2632

== ENCOUNTER → 2021-12-07 | Outpatient (CLI) | payer MEDICARE ==
[~2021-12-07] MED LIST changes: -LIDOCAINE 1% SDV 5ML VIAL As Ordered ONE; -LR 1,000 ML IV SCH; -MIDAZOLAM INJ 2MG/2ML VIAL (J2250 PER 1MG) As Ordered ONE; -TETRACAINE 0.5% OPHTH SOLN 4ML OS SCH; -fentaNYL 100 MCG/2 ML INJECTION As Ordered ONE
== END ==
LOC: M LABSMTC 09:12
PROVIDERS: ATTEND Anesthesiology
DX: Z01.812 Encounter for preprocedural laboratory examination (principal); Z20.822 Contact with and (suspected) exposure to COVID-19

== ENCOUNTER 2021-12-12 07:23 | Day surgery (SDC) | payer MEDICARE ==
[~2021-12-12] VITALS: Ht 165.1 cm; Wt 95.2 kg
[2021-12-12] MEDS ORDERED: LR 1,000 ML IV SCH ×2 (07:30→10:40)
[2021-12-12] MEDS ORDERED: BUPIVACAINE/EPIN 0.25% 30 ML VIAL As Ordered ONE (08:49)
[2021-12-12] MEDS ORDERED: LevoFLOXacin IV 500 MG in IV 1 EA IV ONE (09:20)
[2021-12-12] MEDS ORDERED: LevoFLOXacin 500MG/100ML IV BAG (J1956 PER 250MG) As Ordered ONE (09:31)
[2021-12-12] MEDS ORDERED: SUGAMMADEX SODIUM 500 MG/5 ML VIAL (BRIDION) As Ordered ONE (09:33)
[2021-12-12] MEDS ORDERED: LIDOCAINE 2% 100MG/5ML SDV (FOR ANES.) As Ordered ONE (09:33)
[2021-12-12] MEDS ORDERED: fentaNYL 250 MCG/5 ML INJECTION As Ordered ONE (09:33)
[2021-12-12] MEDS ORDERED: propofoL 200 MG/20 ML VIAL As Ordered ONE (09:33)
[2021-12-12] MEDS ORDERED: MIDAZOLAM INJ 2MG/2ML VIAL (J2250 PER 1MG) As Ordered ONE (09:33)
[2021-12-12] MEDS ORDERED: ROCURONIUM BROMIDE 50 MG/5 ML VIAL As Ordered ONE (09:33)
[2021-12-12] MEDS ORDERED: ACETAMINOPHEN 1000MG 100ML IV BTL (OFIRMEV) (J0131 PER 10MG) As Ordered ONE (09:33)
[2021-12-12] MEDS ORDERED: METOCLOPRAMIDE INJ 10MG/2ML VIAL (J2765 PER 1) As Ordered ONE (09:33)
[2021-12-12] MEDS ORDERED: dexameTHASONE 4 MG/ML 1ML VIAL (J1100 PER 1MG) As Ordered ONE (09:33)
[2021-12-12] MEDS ORDERED: ONDANSETRON 4MG 2ML VIAL As Ordered ONE (09:33)
[2021-12-12] MEDS ORDERED: KETOROLAC 60MG 2ML VIAL As Ordered ONE (09:34)
[2021-12-12] MEDS ORDERED: ePHEDrine SULFATE 25 MG/5 ML(5MG/ML) SYRINGE As Ordered ONE (09:36)
[2021-12-12] MEDS ORDERED: PHENYLephrine 500MCG 5ML (100MCG/ML) SYRINGE As Ordered ONE (09:37)
[2021-12-12] MEDS ORDERED: VASOPRESSIN INJ 20 UNITS/ML VIAL As Ordered ONE (09:46)
[2021-12-12] MEDS ORDERED: BUPIVACAINE LIPOSOME/PF 1.3% 20ML VIAL (13.3MG/ML)(EXPAREL) As Ordered ONE (10:21)
[2021-12-12] MEDS ORDERED: HYDROMORPHONE HCL 0.5 MG/ 0.5 ML SYRINGE (J1170 PER 1) IV PRN (10:40)
[2021-12-12] MEDS ORDERED: ONDANSETRON 4MG 2ML VIAL IV PRN (10:40)
[2021-12-12] MEDS ORDERED: fentaNYL 100 MCG/2 ML INJECTION IV PRN (10:40)
[2021-12-12] MEDS: oxyCODONE 5MG TAB PO PRN ×2 (11:15→11:54)
[2021-12-12] MEDS ORDERED: NORCO, ANEXSIA 5/325MG TABLET (HYDROcodone/ACETAMINOPHEN) PO PRN ×2 (11:50→11:55)
[2021-12-12] MEDS ORDERED: NS 1,000 ML IV SCH (11:50)
[2021-12-12 12:50] VITALS: BP 139/67
== END 2021-12-12 12:54 | disposition home or self-care (01) ==
LOC: M SDC 07:23
PROVIDERS: ATTEND Surgery
DX: K80.10 Calculus of gallbladder with chronic cholecystitis without obstruction (principal); I10 Essential (primary) hypertension; E78.5 Hyperlipidemia, unspecified; M79.7 Fibromyalgia; E66.9 Obesity, unspecified; Z79.899 Other long term (current) drug therapy; Z88.0 Allergy status to penicillin
CPT/HCPCS: 47562; 88304; C9290; J0131; J1100; J1885; J1956; J2250; J2370; J2405; J2765; J3010

== ENCOUNTER → 2023-08-22 | Outpatient (REF) | payer MEDICARE ==
[~2023-08-22] MED LIST changes: -LOSA100T45 PO; +LOSA100T46 PO; +ONDA-282; -ONDA4TAB6; -OXYB5TAB10 PO; +OXYB5TAB14 PO; -ROSU10TA6 PO; +ROSU10TA61 PO
== END ==
LOC: M LAB REF 16:14
PROVIDERS: ATTEND Nurse Practitioner Family
DX: R30.0 Dysuria (principal)

== ENCOUNTER → 2023-08-23 | Outpatient (REF) | payer MEDICARE | LOC: M LAB REF 11:22 | PROVIDERS: ATTEND Nurse Practitioner Family | DX: R19.7 Diarrhea, unspecified (principal) ==

== ENCOUNTER → 2023-08-27 | Outpatient (REF) | payer MEDICARE ==
[2023-08-27 13:15] LABS: APPEARANCE, URINE CLOUDY (CLEAR); BACTERIA, URINE AUTO 1+ (NEGATIVE); BILIRUBIN, URINE AUTO NEGATIVE (NEGATIVE); BLOOD, URINE BLOOD 1+ (NEGATIVE); COLOR, URINE AMBER (YELLOW); GLUCOSE, URINE (UA) AUTO NEGATIVE (NEGATIVE); KETONE, URINE AUTO NEGATIVE (NEGATIVE); LEUKOCYTE ESTERASE, URINE AUTO 1+ (NEGATIVE); MUCUS, URINE SMALL (NEGATIVE); NITRITE, URINE AUTO NEGATIVE (NEGATIVE); PROTEIN, URINE AUTO 1+ mg/dL (NEGATIVE); RBC, URINE AUTO 13 /HPF (0-3); SPECIFIC GRAVITY URINE AUTO 1.024 (1.002-1.035); SQUAMOUS EPITHELIAL CELL UR AU 20 /HPF (0-6); WBC, URINE AUTO 19 /HPF (0-3)
== END ==
LOC: M SMT 12:30
PROVIDERS: ATTEND Urology
DX: N20.0 Calculus of kidney (principal)

== ENCOUNTER → 2023-08-28 | Outpatient (CLI) | payer MEDICARE | LOC: M RAD 09:32 | PROVIDERS: ATTEND Urology | DX: N20.0 Calculus of kidney (principal); R91.1 Solitary pulmonary nodule; Z90.49 Acquired absence of other specified parts of digestive tract; K42.9 Umbilical hernia without obstruction or gangrene; K76.89 Other specified diseases of liver ==

== ENCOUNTER → 2023-10-03 | Outpatient (REF) | payer MEDICARE ==
[2023-10-03 17:37] LABS: APPEARANCE, URINE TURBID (CLEAR); BACTERIA, URINE AUTO NEGATIVE (NEGATIVE); BILIRUBIN, URINE AUTO NEGATIVE (NEGATIVE); BLOOD, URINE BLOOD NEGATIVE (NEGATIVE); CALCIUM OXALATE CRYSTALS SMALL; COLOR, URINE AMBER (YELLOW); GLUCOSE, URINE (UA) AUTO NEGATIVE (NEGATIVE); KETONE, URINE AUTO NEGATIVE (NEGATIVE); LEUKOCYTE ESTERASE, URINE AUTO NEGATIVE (NEGATIVE); MUCUS, URINE LARGE (NEGATIVE); NITRITE, URINE AUTO NEGATIVE (NEGATIVE); PROTEIN, URINE AUTO 1+ mg/dL (NEGATIVE); RBC, URINE AUTO 13 /HPF (0-3); SPECIFIC GRAVITY URINE AUTO 1.027 (1.002-1.035); SQUAMOUS EPITHELIAL CELL UR AU 19 /HPF (0-6); WBC, URINE AUTO 2 /HPF (0-3)
== END ==
LOC: M SMT 16:47
PROVIDERS: ATTEND Physician Assistant
DX: R30.0 Dysuria (principal)

== ENCOUNTER → 2023-11-04 | Outpatient (CLI) | payer MEDICARE | LOC: M PLAIMG 12:41 | PROVIDERS: ATTEND Physician Assistant | DX: N23 Unspecified renal colic (principal) ==

== ENCOUNTER → 2023-12-12 | Day surgery (SDC) | payer MEDICARE ==
[~2023-12-12] VITALS: Ht 162.6 cm; Wt 99.3 kg
[~2023-12-12] MED LIST changes: +MELO15TA28 PO; +NS 1,000 ML IV ONE; +THERTAB52 PO; +propofoL 200 MG/20 ML VIAL As Ordered ONE
[2023-12-12 13:40] VITALS: BP 122/59; O2SAT 94
== END | disposition home or self-care (01) ==
LOC: M OPP 10:05
PROVIDERS: ATTEND Surgery
DX: K62.5 Hemorrhage of anus and rectum (principal); K62.89 Other specified diseases of anus and rectum; K63.89 Other specified diseases of intestine; I10 Essential (primary) hypertension; E78.00 Pure hypercholesterolemia, unspecified; Z90.710 Acquired absence of both cervix and uterus; Z87.440 Personal history of urinary (tract) infections; Z87.442 Personal history of urinary calculi; Z79.899 Other long term (current) drug therapy; Z88.0 Allergy status to penicillin

== ENCOUNTER → 2024-09-14 | Outpatient (REF) | payer MEDICARE, MEDICAID ==
[~2024-09-14] MED LIST changes: -FLOM0.4C39 PO; -NS 1,000 ML IV ONE; +TAMS-18 PO; -propofoL 200 MG/20 ML VIAL As Ordered ONE
== END ==
LOC: M LAB REF 14:26
PROVIDERS: ATTEND Nurse Practitioner Family
DX: R30.0 Dysuria (principal)

== ENCOUNTER → 2024-09-19 | Outpatient (REF) | payer MEDICARE | LOC: M WUC 18:54 | PROVIDERS: ATTEND Physician Assistant Medical | DX: R30.0 Dysuria (principal); R10.30 Lower abdominal pain, unspecified ==

== ENCOUNTER → 2024-09-30 | Outpatient (REF) | payer MEDICARE ==
[2024-09-30 17:40] LABS: APPEARANCE, URINE HAZY (CLEAR); BACTERIA, URINE AUTO 2+ (NEGATIVE); BILIRUBIN, URINE AUTO NEGATIVE (NEGATIVE); BLOOD, URINE BLOOD NEGATIVE (NEGATIVE); GLUCOSE, URINE (UA) AUTO NEGATIVE (NEGATIVE); KETONE, URINE AUTO NEGATIVE (NEGATIVE); LEUKOCYTE ESTERASE, URINE AUTO NEGATIVE (NEGATIVE); MUCUS, URINE SMALL (NEGATIVE); NITRITE, URINE AUTO NEGATIVE (NEGATIVE); PROTEIN, URINE AUTO 1+ mg/dL (NEGATIVE); RBC, URINE AUTO 3 /HPF (0-3); SPECIFIC GRAVITY URINE AUTO 1.018 (1.002-1.035); SQUAMOUS EPITHELIAL CELL UR AU 4 /HPF (0-6); UROBILINOGEN, URINE AUTO 0.2 mg/dL (0.0-2.0); WBC, URINE AUTO 5 /HPF (0-3)
== END ==
LOC: M SMT 16:54
PROVIDERS: ATTEND Urology
DX: N20.0 Calculus of kidney (principal)

== ENCOUNTER → 2024-10-01 | Outpatient (CLI) | payer MEDICARE | LOC: M RAD 07:30 | PROVIDERS: ATTEND Urology | DX: N20.0 Calculus of kidney (principal) ==

== ENCOUNTER 2025-02-07 14:07 | Emergency (ER) | payer MEDICARE, MEDICAID ==
[~2025-02-07] VITALS: Ht 165.1 cm; Wt 99.9 kg
[~2025-02-07 14:07] MED LIST changes: -ROSU10TA61 PO; +ROSU10TA90 PO
[2025-02-07 14:27] LABS: VENOUS BASE EXCESS -2.3 (-2.0-2.0); VENOUS HCO3 22.2 MMOL/L (23.0-27.0); VENOUS O2 SATURATION 81.1 % (60.0-80.0); VENOUS PARTIAL PRESSURE CO2 37.1 mmHg (38.0-50.0); VENOUS PARTIAL PRESSURE O2 44.8 mmHg (30.0-50.0); VENOUS PH 7.394 UNITS (7.330-7.430); VENOUS STANDARD HCO3 22.2 MMOL/L; VENOUS TOTAL CO2 23.3 MMOL/L (24.0-28.0)
[2025-02-07] MEDS: NS 500 ML IV ONE ×4 (14:30→18:30)
[2025-02-07 14:31] LABS: BASO # 0.1 10^3/uL (0.0-0.2); BASO % 0.8 % (0.0-1.0); EOS # 0.0 10^3/uL (0.0-0.5); EOS % 0.3 % (0.0-3.0); LYMPH # 2.9 10^3/uL (1.5-5.0); LYMPH % 25.0 % (24.0-44.0); MONO # 0.6 10^3/uL (0.0-0.8); MONO % 5.4 % (2.0-8.0); NEUTROPHILS # 8.0 10^3/uL (1.5-8.5); NEUTROPHILS % 68.2 % (36.0-66.0); PLATELET COUNT, AUTOMATED 250 10^3/uL (150-450)
[2025-02-07 14:56] LABS: ETHYL ALCOHOL (ETHANOL) < 0.003 % (0.000-0.010); INR 1.03
[2025-02-07 14:58] LABS: ALT/SGPT 14 U/L (7.0-40); AST/SGOT 17 U/L (<34); CALCIUM LEVEL 8.6 MG/DL (8.3-10.6); CARBON DIOXIDE LEVEL 25 MMOL/L (20-31); CHLORIDE LEVEL 111 MMOL/L (98-107); CREATININE FOR GFR 0.81 MG/DL (0.55-1.30); GLOMERULAR FILTRATION RATE 78.0 (>39); POTASSIUM SERUM 4.0 MMOL/L (3.5-5.1); SODIUM LEVEL 147 MMOL/L (136-145)
[2025-02-07] MEDS ORDERED: ISOVUE-370 76% 100 ML VIAL As Ordered ONE (15:48)
[2025-02-07 18:00] LABS: KETONE, URINE AUTO RFX TRACE mg/dL (NEGATIVE); LEUKOCYTE ESTERASE UR AUTO RFX NEGATIVE (NEGATIVE); MUCUS, URINE RFX SMALL (NEGATIVE); NITRITE, URINE AUTO RFX NEGATIVE (NEGATIVE); RBC, URINE AUTO RFX 1 /HPF (0-3); SQUAM EPITHELIAL CELL UR AURFX 2 /HPF (0-6); WBC, URINE AUTO RFX 2 /HPF (0-3)
[2025-02-07 18:31] LABS: PLATELET COUNT, AUTOMATED 170 10^3/uL (150-450)
[2025-02-07] MEDS ORDERED: PROT1TAB2 PO (18:35)
[2025-02-07] MEDS: PANTOPRAZOLE 40MG TAB PO ONE (18:53)
[2025-02-07 22:00] VITALS: O2SAT 96
[2025-02-07 22:17] VITALS: BP 167/72; TEMP 98.4
== END 2025-02-07 22:26 | disposition left against medical advice (07) ==
LOC: M ED 14:07
DX: R11.10 Vomiting, unspecified (principal); E86.0 Dehydration; N20.0 Calculus of kidney; R91.8 Other nonspecific abnormal finding of lung field; M47.812 Spondylosis without myelopathy or radiculopathy, cervical region; Z53.9 Procedure and treatment not carried out, unspecified reason; I10 Essential (primary) hypertension; M79.7 Fibromyalgia; Z79.899 Other long term (current) drug therapy; Z88.0 Allergy status to penicillin
CPT/HCPCS: 70450; 71045; 72125; 74174; 80047; 80053; 81001; 82077; 82248; 82803; 83605; 83690; 85025; 85027; 85384; 85610; 85730; 86850; 86900; 86901; 87486; 87581; 87633; 87798; 93005; 96360; 96361; 99285; Q9967

== ENCOUNTER → 2025-02-22 | Outpatient (REF) | payer MEDICARE, MEDICAID ==
[~2025-02-22] MED LIST changes: +PROT1TAB2 PO
== END ==
LOC: M LAB REF 17:10
DX: R30.0 Dysuria (principal)